=== PATIENT | male | born 1950 | race Caucasian/White ===

== ENCOUNTER 2017-05-01 06:37 | Emergency (ER) | payer OTHER ==
[~2017-05-01] VITALS: Ht 182.9 cm; Wt 68.0 kg
[2017-05-01 06:40] VITALS: BP_SYST 147
--- NOTE | 2017-05-01 06:40 | NUR ---
Patient to ER bed 6 to gown for evaluation. Side rails up. Report given to ROBERT Bender.
--- NOTE | 2017-05-01 06:43 | NUR ---
Per patient, lens grinder states pt had an unwitnessed fall approximately "early this morning", denies loss of consciousness during fall. Approximately 2 cm laceration noted to posterior left head, dried blood noted to laceration site. Pt denies abdominal pain at this time. Pt denies any other complaints.
[2017-05-01] MEDS ORDERED: BACITRACIN 1 GM OINT TP ONE (06:45)
[2017-05-01] MEDS ORDERED: LIDOCAINE/EPI 1% 1:100000 20 ML VIAL IJ ONE (06:45)
--- NOTE | 2017-05-01 06:45 | NUR ---
ER Dr. Lynn at bedside examining patient.
[2017-05-01] MEDS ORDERED: LIDOCAINE/EPI 2% 1:100000 20 ML VIAL INJ ONE (07:05)
--- NOTE | 2017-05-01 07:10 | NUR ---
Patient has a 3 cm laceration to left posterior skull. Dr. Lynn applied 3 conchita using sterile technique. Edges well approximated. Site cleansed with normal saline and iodine. Bacitracin applied to site. No bleeding noted. Pt tolerated well.
[2017-05-01 07:35] VITALS: BP_SYST 143
--- NOTE | 2017-05-01 07:35 | NUR ---
Patient and caregiver given written and verbal discharge instructions and verbalizes understanding. ER MD discussed with patient and caregiver the results and treatment provided. Patient in stable condition. ID arm band removed. No Rx given. Patient and caregiver educated on pain management and to follow up with PMD. Pain Scale 0/10. Opportunity for questions provided and answered.
== END 2017-05-01 07:35 | disposition home or self-care (01) ==
LOC: SED 06:37
DX: S01.01XA Laceration without foreign body of scalp, initial encounter (principal); I10 Essential (primary) hypertension; F03.90 Unspecified dementia, unspecified severity, without behavioral disturbance, psychotic disturbance, mood disturbance, and anxiety; F32.9 Major depressive disorder, single episode, unspecified; K21.9 Gastro-esophageal reflux disease without esophagitis; F20.9 Schizophrenia, unspecified; W22.8XXA Striking against or struck by other objects, initial encounter; Y93.89 Activity, other specified; Y92.89 Other specified places as the place of occurrence of the external cause; Y99.8 Other external cause status
CPT/HCPCS: 99283